=== PATIENT | female | born 1985 | race Caucasian/White ===

== ENCOUNTER 2016-08-13 19:55 | Inpatient (IN) | payer OTHER ==
[~2016-08-13] VITALS: Ht 167.6 cm; Wt 70.0 kg
[~2016-08-13 19:55] MED LIST: CIPRO500 MG PO; PHENERGAN25 MG PR; PYRIDIUM100 MG PO
[2016-08-13] MEDS ORDERED: METHADONE10 MG PO (20:09)
[2016-08-13] MEDS ORDERED: OXYCODONE-APAP1 EACH PO (20:09)
[2016-08-13 20:10] LABS: HEMATOCRIT 43.2 % (36.0-46.0); MCH 29.6 PG (29.0-34.0); MCHC 33.8 G/DL (30.0-36.0); MCV 87.6 FL (83-99); RBC DIS.WIDTH-CV 12.6 % (11.8-14.6); RBC DIS.WIDTH-SD 40.7 % (39-53); RED BLOOD COUNT 4.93 M/uL (3.80-5.20); WHITE BLOOD COUNT 16.1 K/uL (4.1-10.2)
[2016-08-13 20:18] LABS: CHLORIDE 104 mEq/L (99-109); POTASSIUM 3.4 mEq/L (3.7-5.4); SODIUM 141 mEq/L (136-147)
[2016-08-13 20:19] LABS: GLUCOSE 128 mg/dL (70-99)
[2016-08-13 20:21] LABS: ANION GAP 16 MEQ/L (2-14)
[2016-08-13 20:23] LABS: GFR ESTIMATE (CALCULATED) > 59 mL/min/
[2016-08-13 20:24] LABS: UREA NITROGEN (BUN) 11 mg/dL (9-23)
[2016-08-13 20:35] LABS: TOTAL BILIRUBIN 0.3 mg/dL (0.0-1.0)
[2016-08-13 20:36] LABS: ALKALINE PHOSPHATASE 55 IU/L (3-129)
[2016-08-13 20:39] LABS: DIRECT BILIRUBIN 0.1 mg/dL (0.0-0.3)
[2016-08-13 20:40] LABS: LIPASE 33 U/L (1.0-51.0)
[2016-08-13 20:45] LABS: QUANTITATIVE HCG < 4.0 MIU/ML
[2016-08-13 22:01] LABS: ADD MIUA? NO; BILIRUBIN NEGATIVE; BLOOD NEGATIVE; COLOR YELLOW ((YELLOW)); GLUCOSE (STRIP) NEGATIVE; KETONES NEGATIVE; LEUKOCYTES NEGATIVE; NITRITE NEGATIVE; PROTEIN (STRIP) NEGATIVE; UCUL ADDED? NO; UROBILINOGEN 0.2 MG/DL (0.2-1.0)
[2016-08-13 22:11] LABS: AMPHETAMINE NEGATIVE (500 ng/mL); BARBITURATES NEGATIVE (200 ng/mL); BENZODIAZEPINES NEGATIVE (150 ng/mL); COCAINE NEGATIVE (150 ng/mL); INTERNAL CONTROLS VALID? YES; METHADONE PRESUMPTIVE POSITIVE (200 ng/mL); METHAMPHETAMINE NEGATIVE (500 ng/mL); OPIATES (MORPHINE) NEGATIVE (100 ng/mL); OXYCODONE PRESUMPTIVE POSITIVE (100 ng/mL); PHENCYCLIDINE NEGATIVE (25 ng/mL); PROPOXYPHENE NEGATIVE (300 ng/mL); THC CANNABINOIDS PRESUMPTIVE POSITIVE (50 ng/mL); TRICYCLIC ANTIDEPRESSANTS NEGATIVE (300 ng/mL)
[2016-08-13 22:12] LABS: ADD MEDTOX COMMENT Y
[2016-08-13 22:39] LABS: MEAN PLAT.VOLUME 11.6 uM^3 (9.5-12.4); PLATELET COUNT 301 K/uL (156-360)
[2016-08-13] MEDS ORDERED: DAILY VITAMIN1 EAC4 PO (23:18)
[2016-08-13] MEDS ORDERED: LIDOCAINE HCL35 GM TP (23:19)
[2016-08-13] MEDS ORDERED: [UNRECOGNIZED DRUG - MIXTURE] TP (23:19)
[2016-08-14 00:41] VITALS: BP 132/68
[2016-08-14 03:57] VITALS: BP 110/57
[2016-08-14 08:20] VITALS: BP 107/56
[2016-08-14] MEDS ORDERED: DICYCLOMINE HCL10 MG PO (12:17)
[2016-08-14] MEDS ORDERED: PROMETHAZINE HC25 M1 PO (12:17)
[2016-08-14 12:44] VITALS: BP 105/59
== END 2016-08-14 13:50 | disposition home or self-care (01) | DRG 392 ==
LOC: EME → EDBD 19:55 → EME 19:55 → EDOF 22:34 → 3EAST 23:58
PROVIDERS: Emergency Medicine; Internal Medicine
DX: K90.0 Celiac disease (principal); F11.20 Opioid dependence, uncomplicated; K52.89 Other specified noninfective gastroenteritis and colitis; K90.41 Non-celiac gluten sensitivity; G89.29 Other chronic pain; M54.9 Dorsalgia, unspecified; F12.10 Cannabis abuse, uncomplicated; E86.0 Dehydration; R11.2 Nausea with vomiting, unspecified; Z87.891 Personal history of nicotine dependence; Z83.3 Family history of diabetes mellitus; Z82.49 Family history of ischemic heart disease and other diseases of the circulatory system; Z09 Encounter for follow-up examination after completed treatment for conditions other than malignant neoplasm
CPT/HCPCS: 74177; 80048; 80076; 81003; 82948; 83690; 83835 90; 84702; 84999; 85027; 87493; 99281; 99285; J1630; J2405; J3010; J7030

== ENCOUNTER 2017-08-25 09:14 | Emergency (ER) | payer OTHER ==
[~2017-08-25] VITALS: Ht 170.2 cm; Wt 68.1 kg
[~2017-08-25 09:14] MED LIST changes: +DAILY VITAMIN1 EAC4 PO; +DICYCLOMINE HCL10 MG PO; +LIDOCAINE HCL35 GM TP; +METHADONE10 MG PO; +OXYCODONE-APAP1 EACH PO; +PROMETHAZINE HC25 M1 PO; +[UNRECOGNIZED DRUG - MIXTURE] TP
[2017-08-25 09:53] LABS: HEMATOCRIT 40.2 % (36.0-46.0); MCH 30.4 PG (29.0-34.0); MCHC 34.8 G/DL (30.0-36.0); MCV 87.4 FL (83-99); PLATELET COUNT 247 K/uL (156-360); RBC DIS.WIDTH-CV 13.1 % (11.8-14.6); RBC DIS.WIDTH-SD 41.8 % (39-53); WHITE BLOOD COUNT 18.3 K/uL (4.1-10.2)
[2017-08-25 10:03] LABS: ALBUMIN 4.3 g/dL (3.2-4.8); CHLORIDE 107 mEq/L (99-109); POTASSIUM 3.8 mEq/L (3.7-5.4); SODIUM 138 mEq/L (136-147)
[2017-08-25 10:06] LABS: GLUCOSE 119 mg/dL (70-99); TOTAL PROTEIN 7.9 g/dL (6.4-8.3)
[2017-08-25 10:08] LABS: TOTAL BILIRUBIN 0.6 mg/dL (0.0-1.0)
[2017-08-25 10:09] LABS: ALKALINE PHOSPHATASE 56 IU/L (3-129); CREATININE 0.7 mg/dL (0.6-1.3); GFR ESTIMATE (CALCULATED) > 59 mL/min/
[2017-08-25 10:11] LABS: AST (GOT) 23 IU/L (2-34); DIRECT BILIRUBIN 0.2 mg/dL (0.0-0.3); UREA NITROGEN (BUN) 9 mg/dL (9-23)
[2017-08-25 10:12] LABS: ALT (GPT) 13 IU/L (3-49)
[2017-08-25 10:13] LABS: LIPASE 15 U/L (1.0-51.0)
[2017-08-25 10:19] LABS: QUANTITATIVE HCG < 4.0 MIU/ML
[2017-08-25 11:00] VITALS: BP 130/69
== END 2017-08-25 11:01 | disposition home or self-care (01) ==
LOC: EME → EDBD 09:14 → EME 11:01
PROVIDERS: Emergency Medicine
DX: R11.2 Nausea with vomiting, unspecified (principal); R10.9 Unspecified abdominal pain; F12.90 Cannabis use, unspecified, uncomplicated; K21.9 Gastro-esophageal reflux disease without esophagitis; K90.0 Celiac disease; G89.29 Other chronic pain; F41.9 Anxiety disorder, unspecified; F32.9 Major depressive disorder, single episode, unspecified
CPT/HCPCS: 80048; 80076; 81003; 83690; 84702; 85027; 99281; 99284; J1630; J2405; J7030